=== PATIENT | female | born 1975 | race Caucasian/White ===

== ENCOUNTER → 2019-10-24 | Outpatient (CLI) | payer BC, OTHER | LOC: MC.RAD 13:35 | DX: Z12.31 Encounter for screening mammogram for malignant neoplasm of breast (principal); N63.10 Unspecified lump in the right breast, unspecified quadrant ==

== ENCOUNTER → 2019-10-27 | Outpatient (CLI) | payer BC, OTHER ==
[~2019-10-27] MED LIST: LORTAB 5/500 501 TAB PO
== END ==
LOC: MC.RAD 12:43
DX: N63.10 Unspecified lump in the right breast, unspecified quadrant (principal)

== ENCOUNTER → 2021-01-03 | Outpatient (CLI) | payer BC, OTHER | LOC: MC.RAD 13:24 | DX: Z12.31 Encounter for screening mammogram for malignant neoplasm of breast (principal); Z98.890 Other specified postprocedural states ==